=== PATIENT | female | born 1980 | race Caucasian/White ===

== ENCOUNTER → 2023-12-26 17:52 | Outpatient (REF) | payer BC, SELFPAY | LOC: WDC 17:52 | PROVIDERS: ATTENDING PHYSICIAN Nurse Practitioner Women's Health | DX: Z12.31 Encounter for screening mammogram for malignant neoplasm of breast (principal) | CPT/HCPCS: 77063; 77067 ==

== ENCOUNTER → 2024-01-08 08:44 | Outpatient (REF) | payer BC, SELFPAY | LOC: WDC 08:44 | PROVIDERS: ATTENDING PHYSICIAN Nurse Practitioner Women's Health | DX: R92.8 Other abnormal and inconclusive findings on diagnostic imaging of breast (principal) | CPT/HCPCS: 76642 ==

== ENCOUNTER → 2024-02-12 17:13 | Outpatient (REF) | payer BC, SELFPAY | LOC: RAD 17:13 | PROVIDERS: ATTENDING PHYSICIAN Nurse Practitioner Women's Health | DX: R10.2 Pelvic and perineal pain (principal) | CPT/HCPCS: 76830; 76856 ==

== ENCOUNTER → 2024-10-20 13:47 | Outpatient (REF) | payer BC, SELFPAY | LOC: MRI 3T 13:47 | PROVIDERS: ATTENDING PHYSICIAN Anesthesiology | DX: M54.16 Radiculopathy, lumbar region (principal); M19.012 Primary osteoarthritis, left shoulder | CPT/HCPCS: 72148; 73030 ==

== ENCOUNTER → 2024-12-17 17:15 | Outpatient (REF) | payer BC, SELFPAY | LOC: RAD 17:15 | PROVIDERS: ATTENDING PHYSICIAN Obstetrics & Gynecology | DX: R10.2 Pelvic and perineal pain (principal); R14.0 Abdominal distension (gaseous) | CPT/HCPCS: 76830; 76856 ==

== ENCOUNTER → 2024-12-29 17:46 | Outpatient (REF) | payer BC, SELFPAY | LOC: WDC 17:46 | PROVIDERS: ATTENDING PHYSICIAN Obstetrics & Gynecology | DX: Z12.31 Encounter for screening mammogram for malignant neoplasm of breast (principal) | CPT/HCPCS: 77063; 77067 ==